=== PATIENT | female | born 1950 | race Caucasian/White ===

== ENCOUNTER 2024-12-15 06:22 | Inpatient (IN) | payer MEDICARE, OTHER ==
[~2024-12-15] VITALS: Ht 162.6 cm; Wt 70.3 kg
[2024-12-15] MEDS ORDERED: dexaMETHasone SOD PHOSPHATE 1 ML ONE (07:15)
[2024-12-15] MEDS ORDERED: ANESTHESIA TRAY IN PYXIS 1 EA TRAY MC ONE (07:15)
[2024-12-15] MEDS ORDERED: VANCOMYCIN 1 GM VIAL ONE (07:15)
[2024-12-15] MEDS ORDERED: LIDOCAINE 2%-EPI 1:100,000 30 ML VIAL ONE (07:15)
[2024-12-15] MEDS ORDERED: FENTANYL PF 250MCG/5ML AMPUL ONE (07:16)
[2024-12-15] MEDS ORDERED: ROCURONIUM BROMIDE 50 MG/5 ML ONE (07:17)
[2024-12-15] MEDS ORDERED: HYDROMORPHONE 1 MG/1 ML DISP.SYRIN IV PRN (12:30)
[2024-12-15] MEDS ORDERED: ONDANSETRON HCL/PF 4 MG/2 ML VIAL IVP PRN ×2 (12:30→14:00)
[2024-12-15] MEDS ORDERED: ACETAMINOPHEN 325 MG TABLET PO PRN (12:30)
[2024-12-15] MEDS ORDERED: hydrALAZINE HCL IV 20 MG VIAL IV PRN (14:00)
[2024-12-15] MEDS ORDERED: MORPHINE SULFATE INJ 2 MG/ML DISP.SYRIN IV PRN (14:00)
[2024-12-15] MEDS: IV NS 0.9% 1,000 ML IV PRN (15:06)
[2024-12-15] MEDS ORDERED: INDO75CA3 PO (15:36)
[2024-12-15] MEDS ORDERED: CHOL100062 PO (15:36)
[2024-12-15] MEDS ORDERED: LEVO50TA8 PO (15:36)
[2024-12-15] MEDS ORDERED: METO25TA4 PO (15:36)
[2024-12-15] MEDS ORDERED: ROSU20TA2 PO (15:36)
[2024-12-15] MEDS ORDERED: ICOS1CAP PO (15:36)
[2024-12-15] MEDS ORDERED: ISOS60TA72 PO (15:36)
[2024-12-15] MEDS ORDERED: NITR0.4T48 SL (15:36)
[2024-12-15 16:00] VITALS: BP 112/54; TEMP 98.1; O2SAT 95
[2024-12-15] MEDS: VANCOMYCIN 1 GM in IV D5W 250ml IV SCH (18:28)
[2024-12-15] MEDS ORDERED: NITROGLYCERIN 0.4 MG/TAB BOTTLE SL PRN (19:30)
[2024-12-15 20:00] VITALS: BP 112/51; TEMP 98.2; O2SAT 97
[2024-12-15 21:35] VITALS: BP 112/51; TEMP 98.2; O2SAT 97
[2024-12-16 07:34] LABS: ASPARTATE AMINOTRANSFERASE 17.0 U/L (15-37); CALCIUM, SERUM 8.6 mg/dL (8.5-10.1); CREATININE 0.6 mg/dL (0.6-1.3); PHOSPHORUS 3.0 mg/dL (2.5-4.9); SODIUM SERUM 140.0 mmol/L (136-145); TOTAL PROTEIN, SERUM 6.8 g/dL (6.4-8.2); UREA NITROGEN, BLOOD 11.0 mg/dL (7-18)
[2024-12-16 08:00] VITALS: BP 138/58; TEMP 98.2; O2SAT 98
[2024-12-16 08:09] LABS: PLATELET COUNT (AUTO) 168 K/uL (150-450); RED BLOOD CELL COUNT(AUTO) 4.25 MIL/uL (4.0-5.2); RED CELL DISTRIBUTION WIDTH 13.8 % (11.5-15.0); WHITE BLOOD COUNT (AUTO) 8.1 K/uL (4.3-11.0)
[2024-12-16] MEDS: CHOLECALCIFEROL 1,000 UNIT TABLET (VIT D3) PO SCH (08:19)
[2024-12-16 08:20] VITALS: BP 138/58
[2024-12-16] MEDS: ATORVASTATIN 40 MG TABLET PO SCH (08:20)
[2024-12-16] MEDS: INDOMETHACIN 25 MG CAPSULE PO SCH (08:20)
[2024-12-16] MEDS: METOPROLOL SUCCINATE 25 MG TAB.SR.24H PO SCH (08:20)
[2024-12-16] MEDS: LEVOTHYROXINE SODIUM 50 MCG TABLET PO SCH (08:20)
[2024-12-16] MEDS ORDERED: Medication Not On Formulary EA (Icosapent Ethyl (Vascepa) 1 GM) PO SCH (09:00)
[2024-12-16] MEDS ORDERED: Medication Not On Formulary EA (Isosorbide Mononitrate 60 MG) PO SCH (09:00)
== END 2024-12-16 09:03 | disposition home or self-care (01) | DRG 145 ==
LOC: DS 06:22 → MED 10:29
PROVIDERS: ADMIT Internal Medicine; ATTEND Internal Medicine
PROC: 0NHT04Z Insertion of Internal Fixation Device into Right Mandible, Open Approach (ICD-10-PCS; principal; 2024-12-15 07:30)
PROC: 0NBR0ZZ Excision of Maxilla, Open Approach (ICD-10-PCS; principal; 2024-12-15 07:30)
PROC: 0NUR07Z Supplement Maxilla with Autologous Tissue Substitute, Open Approach (ICD-10-PCS; principal; 2024-12-15 07:30)
PROC: 0NUV07Z Supplement Left Mandible with Autologous Tissue Substitute, Open Approach (ICD-10-PCS; principal; 2024-12-15 07:30)
PROC: 0NUT07Z Supplement Right Mandible with Autologous Tissue Substitute, Open Approach (ICD-10-PCS; principal; 2024-12-15 07:30)
PROC: 09UR07Z Supplement Left Maxillary Sinus with Autologous Tissue Substitute, Open Approach (ICD-10-PCS; principal; 2024-12-15 07:30)
PROC: 0N5T0ZZ Destruction of Right Mandible, Open Approach (ICD-10-PCS; principal; 2024-12-15 07:30)
PROC: 0N5V0ZZ Destruction of Left Mandible, Open Approach (ICD-10-PCS; principal; 2024-12-15 07:30)
PROC: 0NHV04Z Insertion of Internal Fixation Device into Left Mandible, Open Approach (ICD-10-PCS; principal; 2024-12-15 07:30)
DX: S02.40DA Maxillary fracture, left side, initial encounter for closed fracture (principal); S02.609A Fracture of mandible, unspecified, initial encounter for closed fracture; M27.2 Inflammatory conditions of jaws; J32.9 Chronic sinusitis, unspecified; X58.XXXA Exposure to other specified factors, initial encounter; I08.0 Rheumatic disorders of both mitral and aortic valves; M84.9 Disorder of continuity of bone, unspecified; Y92.009 Unspecified place in unspecified non-institutional (private) residence as the place of occurrence of the external cause; I10 Essential (primary) hypertension; E78.5 Hyperlipidemia, unspecified; E03.9 Hypothyroidism, unspecified; I25.10 Atherosclerotic heart disease of native coronary artery without angina pectoris; D16.4 Benign neoplasm of bones of skull and face; D16.5 Benign neoplasm of lower jaw bone; Z79.899 Other long term (current) drug therapy
CPT/HCPCS: 36415; 80053-TC; 83735-TC; 84100-TC; 85025-TC; A4223; A4338; C1713; G0378; J1100; J2704; J3010; J3370; J3490; J7030; J7060